=== PATIENT | male | born 1955 | race African-American/Black ===

== ENCOUNTER → 2023-12-31 | Outpatient (CLI) | payer BC ==
[2023-12-31 10:43] LABS: BASOPHILS % 0.3 % (0.0-2.0); DIFFERENTIAL COMMENT 0; EOSINOPHILS % 0.6 % (0.0-5.0); HEMATOCRIT. 41.6 % (42.0-52.0); HEMOGLOBIN. 13.7 g/dL (14.0-18.0); LYMPHOCYTES % 21.4 % (20.0-50.0); MEAN CORPUSCULAR HEMOGLOBIN 25.1 pg (28.0-32.0); MEAN CORPUSCULAR HGB CONC 32.9 g/dL (31.0-37.0); MEAN CORPUSCULAR VOLUME 76.3 fL (80.0-94.0); MONOCYTES % 7.7 % (2.0-8.0); PLATELET 250 x1000/uL (130-400); RED BLOOD CELL COUNT 5.45 mill/uL (4.7-6.1); RED CELL DISTRIBUTION WIDTH 15.5 % (11.6-14.6); WHITE BLOOD COUNT 7.6 x1000/uL (4.5-11.0)
[2023-12-31 10:55] LABS: PARTIAL THROMBOPLASTIN TIME 25.6 sec (23.4-31.0); PROTHROMBIN TIME 10.8 sec (9.6-11.0)
[2023-12-31 11:07] LABS: ALANINE AMINOTRANSFERASE 10 IU/L (10-49); ALBUMIN 4.7 g/dL (3.2-4.8); ASPARTATE AMINOTRANSFERASE 17 IU/L (<34); BILIRUBIN TOTAL 0.5 mg/dL (0.1-1.0); CALCIUM 9.3 mg/dL (8.7-10.4); CARBON DIOXIDE 27 mEq/L (21-32); CHLORIDE 106 mEq/L (98-107); CREATININE 0.7 mg/dL (0.6-1.3); GLUCOSE 87 mg/dL (70-105); POTASSIUM 4.2 mEq/L (3.5-5.1); PROTEIN TOTAL 8.3 g/dL (6.0-8.3); SODIUM 138 mEq/L (136-145); UREA NITROGEN BLOOD 13 mg/dL (9-23)
== END | disposition home or self-care (01) ==
LOC: LAB 09:48
PROVIDERS: ATTEND Internal Medicine Critical Care Medicine
DX: Z01.818 Encounter for other preprocedural examination (principal)
CPT/HCPCS: 36415; 71046; 80053; 85025

== ENCOUNTER 2024-01-14 05:25 | Inpatient (IN) | payer BC ==
[~2024-01-14] VITALS: Ht 180.3 cm; Wt 89.8 kg
[2024-01-14] MEDS ORDERED: LACTATED RINGERS 1,000 ML IV SCH (06:00)
[2024-01-14 06:06] LABS: CLARITY URINE CLEAR (CLEAR); COLOR URINE YELLOW (YELLOW); GLUCOSE URINE NEGATIVE (NEGATIVE); KETONES URINE NEGATIVE (NEGATIVE); LEUKOCYTE ESTERASE URINE NEGATIVE (NEGATIVE); NITRITE URINE NEGATIVE (NEGATIVE); OCCULT BLOOD URINE NEGATIVE (NEGATIVE); PROTEIN URINE NEGATIVE (NEGATIVE); SPECIFIC GRAVITY URINE 1.007 (1.005-1.030); UROBILINOGEN URINE 0.2 E.U./dL (0.2-1.0)
[2024-01-14] MEDS ORDERED: VANCOMYCIN HCL 1 GM/VIAL ONE (06:37)
[2024-01-14] MEDS ORDERED: LIDOCAINE HCL/EPINEPHRINE 1%-EPI 1:100,000 20 ML VIAL ONE (06:38)
[2024-01-14] MEDS ORDERED: MELO-106 PO (06:40)
[2024-01-14] MEDS ORDERED: POLYMYXIN B SULFATE 500000 UNITS/VIAL ONE (06:57)
[2024-01-14] MEDS ORDERED: TRANEXAMIC ACID 1000MG PREMIX 100 ML IV SCH ×2 (07:00→08:00)
[2024-01-14] MEDS ORDERED: ONDANSETRON HCL 4MG/2ML INJ ONE (07:25)
[2024-01-14] MEDS ORDERED: DEXAMETHASONE 4MG/ML 1ML VIAL ONE (07:25)
[2024-01-14] MEDS ORDERED: MIDAZOLAM HCL 2 MG/2 ML VIAL ONE (07:26)
[2024-01-14] MEDS ORDERED: FENTANYL CITRATE/PF 50MCG/ML 2ML VIAL ONE (07:26)
[2024-01-14] MEDS ORDERED: PROPOFOL 200MG/20ML VIAL IV ONE (07:26)
[2024-01-14] MEDS ORDERED: PROPOFOL 10MG/ML 100ML 100 ML IV ONE (07:49)
[2024-01-14] MEDS ORDERED: TRANEXAMIC ACID 20 ML ONE (07:50)
[2024-01-14] MEDS ORDERED: TRANEXAMIC ACID 1000MG PREMIX 200 ML IV ONE (07:50)
[2024-01-14] MEDS ORDERED: CEFAZOLIN SODIUM 1000MG/VIAL ONE ×2 (08:29)
[2024-01-14] MEDS ORDERED: HYDROMORPHONE HCL/PF 2MG/ML CPJ IV PRN (08:30)
[2024-01-14] MEDS ORDERED: FENTANYL CITRATE/PF 50MCG/ML 2ML VIAL IV PRN (08:30)
[2024-01-14] MEDS ORDERED: ACETAMINOPHEN 1000MG/100ML 100 ML IV STA (08:30)
[2024-01-14] MEDS ORDERED: ONDANSETRON HCL 4MG/2ML INJ IV PRN ×2 (08:30→09:45)
[2024-01-14] MEDS ORDERED: ROPIVACAINE HCL 1% 20 ML VIAL EPI ONE (09:11)
[2024-01-14] MEDS ORDERED: CEFAZOLIN 1000MG PREMIX 50 ML IV NR (09:45)
[2024-01-14] MEDS ORDERED: OXYC-100 MT (10:10)
[2024-01-14] MEDS ORDERED: ASPI-1497 PO (10:11)
[2024-01-14 12:00] VITALS: BP 158/82; PULSE 54; RESP 18; TEMP 95.9
[2024-01-14 13:36] VITALS: BP 158/82; PULSE 54; RESP 18; TEMP 97.1
[2024-01-14] MEDS: KETOROLAC 30MG/ML VIAL IV PRN (13:58)
[2024-01-14] MEDS: METOCLOPRAMIDE HCL 10MG/2ML VIAL IV SCH (13:58)
[2024-01-14] MEDS ORDERED: NALOXONE HCL 0.4MG/ML VIAL IV PRN (14:45)
[2024-01-14 16:00] VITALS: PULSE 62; RESP 18; TEMP 95
[2024-01-14] MEDS: CEFAZOLIN 1000MG PREMIX 50 ML IV SCH (18:14)
[2024-01-14] MEDS: SENNOSIDES/DOCUSATE SOD 8.6/50MG TABLET PO SCH (18:14)
[2024-01-14] MEDS: HYDROCODONE/ACETAMINOPHEN 10/325MG TABLET PO PRN (19:07)
[2024-01-14 20:00] VITALS: BP 118/66; PULSE 75; RESP 20; TEMP 97.7
[2024-01-15] VITALS: BP 128/67; PULSE 90; RESP 20; TEMP 99.5
[2024-01-15 04:00] VITALS: BP 147/73; PULSE 74; RESP 20; TEMP 99.3
[2024-01-15 08:00] VITALS: BP 148/72; PULSE 65; RESP 18; TEMP 98.1
[2024-01-15 08:11] LABS: BASOPHILS % 0.1 % (0.0-2.0); DIFFERENTIAL COMMENT 0; HEMATOCRIT. 35.2 % (42.0-52.0); HEMOGLOBIN. 11.4 g/dL (14.0-18.0); LYMPHOCYTES % 10.6 % (20.0-50.0); MEAN CORPUSCULAR HEMOGLOBIN 24.9 pg (28.0-32.0); MEAN CORPUSCULAR HGB CONC 32.3 g/dL (31.0-37.0); MEAN PLATELET VOLUME 8.1 fl (7.4-10.4); MONOCYTES % 10.5 % (2.0-8.0); NEUTROPHILS % 78.8 % (40.0-76.0); PLATELET 234 x1000/uL (130-400); RED BLOOD CELL COUNT 4.57 mill/uL (4.7-6.1); RED CELL DISTRIBUTION WIDTH 15.1 % (11.6-14.6); WHITE BLOOD COUNT 13.5 x1000/uL (4.5-11.0)
[2024-01-15 08:21] LABS: ALANINE AMINOTRANSFERASE 11 IU/L (10-49); ASPARTATE AMINOTRANSFERASE 14 IU/L (<34); BILIRUBIN TOTAL 0.6 mg/dL (0.1-1.0); CALCIUM 8.8 mg/dL (8.7-10.4); CARBON DIOXIDE 24 mEq/L (21-32); CHLORIDE 107 mEq/L (98-107); CREATININE 0.7 mg/dL (0.6-1.3); GLUCOSE 103 mg/dL (70-105); PROTEIN TOTAL 7.2 g/dL (6.0-8.3); SODIUM 138 mEq/L (136-145); UREA NITROGEN BLOOD 12 mg/dL (9-23)
[2024-01-15 12:00] VITALS: BP 152/75; PULSE 64; RESP 19; TEMP 97.7
[2024-01-15] MEDS: ASPIRIN 81MG TABLET PO SCH (12:56)
[2024-01-15] MEDS: DOCUSATE SODIUM 250MG CAPSULE PO SCH (14:30)
[2024-01-15 16:00] VITALS: BP 157/78; PULSE 63; RESP 18; TEMP 97.9
[2024-01-15] MEDS: HYDROCODONE/ACETAMINOPHEN 10/325MG TABLET PO PRN (22:33)
[2024-01-16 08:00] VITALS: BP 129/67; PULSE 75; RESP 18; TEMP 98.8
[2024-01-16 12:00] VITALS: BP 129/85; PULSE 88; RESP 19; TEMP 97.6
[2024-01-16 16:00] VITALS: BP 123/67; PULSE 84; RESP 17; TEMP 98.1
[2024-01-17 08:00] VITALS: BP 125/63; PULSE 78; RESP 19; TEMP 98.1
[2024-01-17 12:00] VITALS: BP 128/82; PULSE 70; RESP 20; TEMP 97.5
[2024-01-17 15:40] VITALS: BP 128/82; PULSE 70; TEMP 97.5; O2SAT 97
== END 2024-01-17 16:50 | disposition home or self-care (01) | DRG 470 ==
LOC: OR 05:25 → 6EST 05:26
PROC: 0SRC069 Replacement of Right Knee Joint with Oxidized Zirconium on Polyethylene Synthetic Substitute, Cemented, Open Approach (ICD-10-PCS; principal; 2024-01-14)
DX: M17.11 Unilateral primary osteoarthritis, right knee (principal); G89.29 Other chronic pain; Z96.651 Presence of right artificial knee joint
CPT/HCPCS: 36415; 73562; 80053; 81003; 85025; 86850; 86900; 88305; 88311; 97110; 97116; 97162; 97166; 97530; 97535; J0690; J1100; J1885; J2250; J2405; J2704; J2765; J2795; J3010; J3370; J3490; L1830; C1713; C1776; J0131

== ENCOUNTER → 2024-01-31 | Outpatient (CLI) | payer BC ==
[~2024-01-31] MED LIST: ASPI-1497 PO; MELO-106 PO; OXYC-100 MT
== END | disposition home or self-care (01) ==
LOC: RAD 11:58
DX: M17.11 Unilateral primary osteoarthritis, right knee (principal); Z96.651 Presence of right artificial knee joint; Z79.82 Long term (current) use of aspirin; Z79.899 Other long term (current) drug therapy
CPT/HCPCS: 73562

== ENCOUNTER → 2024-11-20 | Outpatient (CLI) | payer BC | END | disposition home or self-care (01) | LOC: RAD 12:31 | DX: M17.12 Unilateral primary osteoarthritis, left knee (principal); M85.862 Other specified disorders of bone density and structure, left lower leg; Z96.651 Presence of right artificial knee joint | CPT/HCPCS: 73562 ==

== ENCOUNTER → 2025-01-10 | Outpatient (CLI) | payer BC | END | disposition home or self-care (01) | LOC: RAD 11:44 | PROVIDERS: ATTEND Internal Medicine Critical Care Medicine | DX: R05.9 Cough, unspecified (principal) | CPT/HCPCS: 71046 ==

== ENCOUNTER 2025-01-26 05:26 | Inpatient (IN) | payer BC ==
[~2025-01-26] VITALS: Ht 177.8 cm; Wt 84.4 kg
[2025-01-26] MEDS: LACTATED RINGERS 1,000 ML IV SCH (06:40)
[2025-01-26] MEDS ORDERED: LIDOCAINE HCL/EPINEPHRINE 1%-EPI 1:100,000 20ML VIAL ONE (06:46)
[2025-01-26] MEDS ORDERED: VANCOMYCIN HCL 1GM VIAL ONE (06:46)
[2025-01-26] MEDS ORDERED: POLYMYXIN B SULFATE 500000 UNITS/VIAL ONE (06:46)
[2025-01-26] MEDS ORDERED: TRANEXAMIC ACID 1000MG PREMIX 200 ML IV ONE (07:25)
[2025-01-26] MEDS ORDERED: PROPOFOL 10MG/ML 100ML 100 ML IV ONE (07:26)
[2025-01-26] MEDS ORDERED: ACETAMINOPHEN 1000MG/100ML 100 ML IV ONE (07:26)
[2025-01-26] MEDS ORDERED: FENTANYL CITRATE/PF 50MCG/ML 2ML VIAL ONE (07:40)
[2025-01-26] MEDS ORDERED: BUPIVACAINE HCL/PF 0.25% (2.5MG/ML) 10ML ONE ×2 (07:51→07:52)
[2025-01-26] MEDS ORDERED: CEFAZOLIN SODIUM 1000MG/VIAL ONE (08:17)
[2025-01-26] MEDS ORDERED: ONDANSETRON HCL 4MG/2ML INJ ONE (08:20)
[2025-01-26] MEDS ORDERED: DEXAMETHASONE 4MG/ML 1ML VIAL ONE (08:20)
[2025-01-26] MEDS ORDERED: GLYCOPYRROLATE 0.2 MG/ML 2ML VIAL ONE (08:21)
[2025-01-26] MEDS ORDERED: SKIN ADHESIVE 0.7 GM EA TOP ONE (08:38)
[2025-01-26] MEDS ORDERED: EPHEDRINE SULFATE 50MG/ML VIAL ONE (09:37)
[2025-01-26] MEDS ORDERED: HYDROCODONE/ACETAMINOPHEN 5/325MG TABLET PO PRN (09:45)
[2025-01-26 10:00] VITALS: BP 98/51; PULSE 50; RESP 18; TEMP 36.4
[2025-01-26] MEDS ORDERED: HYDROMORPHONE HCL/PF 1MG/ML INJ IV PRN (10:00)
[2025-01-26] MEDS: CEFAZOLIN 1000MG PREMIX 50 ML IV NR (10:00)
[2025-01-26] MEDS ORDERED: ONDANSETRON HCL 4MG/2ML INJ IV PRN ×2 (10:00→10:30)
[2025-01-26] MEDS ORDERED: NALOXONE HCL 0.4MG/ML VIAL IV PRN (10:45)
[2025-01-26 11:56] LABS: HIV 1/2 AB P24AG Negative (Negative)
[2025-01-26 12:01] LABS: CHLORIDE 108 mEq/L (98-107); POTASSIUM 4.8 mEq/L (3.5-5.1); SODIUM 139 mEq/L (136-145)
[2025-01-26 12:02] LABS: CALCIUM 8.8 mg/dL (8.7-10.4); CARBON DIOXIDE 20 mEq/L (21-32)
[2025-01-26 12:07] LABS: CREATININE 0.8 mg/dL (0.6-1.3); GLUCOSE 96 mg/dL (70-105); UREA NITROGEN BLOOD 9 mg/dL (9-23)
[2025-01-26] MEDS: KETOROLAC 30MG/ML VIAL IV PRN (13:35)
[2025-01-26 13:36] LABS: MEAN CORPUSCULAR HEMOGLOBIN 24.2 pg (28.0-32.0); MEAN CORPUSCULAR HGB CONC 31.7 g/dL (31.0-37.0); MEAN CORPUSCULAR VOLUME 76.4 fL (80.0-94.0); MEAN PLATELET VOLUME 7.9 fl (7.4-10.4); PLATELET 267 x1000/uL (130-400); RED BLOOD CELL COUNT 5.37 mill/uL (4.7-6.1); RED CELL DISTRIBUTION WIDTH 15.8 % (11.6-14.6); WHITE BLOOD COUNT 14.3 x1000/uL (4.5-11.0)
[2025-01-26 13:44] LABS: DIFFERENTIAL COMMENT 1
[2025-01-26 14:13] LABS: HEPATITIS B SURFACE ANTIGEN NEGATIVE; HEPATITIS C VIR.AB 0.05 INDEXVAL (0.00-0.80)
[2025-01-26] MEDS: METOCLOPRAMIDE HCL 10MG/2ML VIAL IV SCH (15:54)
[2025-01-26] MEDS: CEFAZOLIN 1000MG PREMIX 50 ML IV SCH (15:54)
[2025-01-26 16:00] VITALS: BP 138/80; PULSE 60; RESP 20; TEMP 36.6; O2SAT 97
[2025-01-26 20:00] VITALS: BP 121/78; PULSE 90; RESP 20; TEMP 35.4; O2SAT 97
[2025-01-26] MEDS: SENNOSIDES/DOCUSATE SOD 8.6/50MG TABLET PO SCH (20:19)
[2025-01-27] VITALS: BP 122/69; PULSE 78; RESP 19; TEMP 35.2; O2SAT 96
[2025-01-27 04:00] VITALS: BP 133/71; PULSE 65; RESP 19; TEMP 35.9; O2SAT 99
[2025-01-27 08:00] VITALS: BP 137/71; PULSE 76; RESP 20; TEMP 36.4; O2SAT 96
[2025-01-27] MEDS: ASPIRIN 81MG TABLET PO SCH (08:20)
[2025-01-27 09:24] LABS: BASOPHILS % 0.1 % (0.0-2.0); EOSINOPHILS % 0.1 % (0.0-5.0); HEMATOCRIT. 38.3 % (42.0-52.0); LYMPHOCYTES % 15.8 % (20.0-50.0); MEAN CORPUSCULAR HEMOGLOBIN 24.3 pg (28.0-32.0); MEAN CORPUSCULAR HGB CONC 31.4 g/dL (31.0-37.0); MEAN CORPUSCULAR VOLUME 77.4 fL (80.0-94.0); MEAN PLATELET VOLUME 8.4 fl (7.4-10.4); MONOCYTES % 9.8 % (2.0-8.0); NEUTROPHILS % 74.2 % (40.0-76.0); PLATELET 238 x1000/uL (130-400); RED BLOOD CELL COUNT 4.95 mill/uL (4.7-6.1); RED CELL DISTRIBUTION WIDTH 15.5 % (11.6-14.6); WHITE BLOOD COUNT 13.1 x1000/uL (4.5-11.0)
[2025-01-27 09:30] LABS: DIFFERENTIAL COMMENT 1
[2025-01-27] MEDS ORDERED: ASPI-1406 PO (10:45)
[2025-01-27] MEDS ORDERED: OXYC-100 MT (10:45)
[2025-01-27] MEDS: HYDROCODONE/ACETAMINOPHEN 5/325MG TABLET PO PRN (11:01)
[2025-01-27 11:15] LABS: PLATELET ESTIMATE NORMAL
[2025-01-27 12:00] VITALS: BP 128/70; PULSE 65; RESP 20; TEMP 36.5; O2SAT 100
[2025-01-27] MEDS: ACETAMINOPHEN 325MG TABLET PO PRN (14:20)
[2025-01-27 16:00] VITALS: BP 145/75; PULSE 62; RESP 20; TEMP 36.9; O2SAT 97
[2025-01-27 20:00] VITALS: BP 137/83; PULSE 85; RESP 19; TEMP 37.1; O2SAT 98
[2025-01-28] VITALS: BP 135/57; PULSE 85; RESP 18; TEMP 37.1; O2SAT 96
[2025-01-28 08:00] VITALS: BP 132/78; PULSE 77; RESP 22; TEMP 36.6; O2SAT 99
[2025-01-28 12:00] VITALS: BP 131/71; PULSE 80; RESP 20; TEMP 36.3; O2SAT 98
[2025-01-28 16:00] VITALS: BP 135/75; PULSE 86; RESP 20; TEMP 36.6; O2SAT 97
[2025-01-28 20:00] VITALS: BP 133/81; PULSE 97; RESP 18; TEMP 36.6; O2SAT 97
[2025-01-29] VITALS: BP 129/78; PULSE 89; RESP 18; TEMP 36.6; O2SAT 98
[2025-01-29 04:00] VITALS: BP 130/80; PULSE 85; RESP 17; TEMP 37.1; O2SAT 99
[2025-01-29 08:00] VITALS: BP 131/70; PULSE 99; RESP 18; TEMP 36.2; O2SAT 98
[2025-01-29 12:00] VITALS: BP 126/72; PULSE 88; RESP 18; TEMP 36.2; O2SAT 98
[2025-01-29 13:34] VITALS: BP 126/72; PULSE 88; TEMP 97.2; O2SAT 98
== END 2025-01-29 14:47 | disposition home health service (06) | DRG 470 ==
LOC: OR 05:26 → 6EST 11:20
PROC: 0SRD0JA Replacement of Left Knee Joint with Synthetic Substitute, Uncemented, Open Approach (ICD-10-PCS; principal; 2025-01-26)
DX: M17.12 Unilateral primary osteoarthritis, left knee (principal); E87.20 Acidosis, unspecified
CPT/HCPCS: 36415; 73560; 80048; 85025; 86480; 86850; 86900; 88305; 88311; 97110; 97116; 97162; 97166; A4606; J0690; J1100; J1885; J2004; J2405; J2704; J2765; J3010; J3370; J3490; L1830; C1776; J0131